=== PATIENT | female | born 1930 | race Asian ===

== ENCOUNTER 2017-01-25 00:13 | Inpatient (IN) | payer OTHER, MEDICAID ==
[~2017-01-25] VITALS: Ht 149.9 cm; Wt 31.4 kg
[2017-01-25] VITALS: BP 146/67
[2017-01-25] MEDS ORDERED: clonazePAM 0.5 MG TABLET PO PRN (00:30)
[2017-01-25] MEDS ORDERED: MAG HYDROX/AL HYDROX/SIMETH 30 ML UDC PO PRN (00:30)
[2017-01-25] MEDS ORDERED: TEMAZEPAM 7.5 MG CAPSULE PO PRN (00:30)
[2017-01-25] MEDS ORDERED: MAGNESIUM HYDROXIDE 30 ML UDC PO PRN (00:30)
[2017-01-25] MEDS ORDERED: ACETAMINOPHEN 325 MG TABLET PO PRN (00:30)
[2017-01-25] MEDS ORDERED: AMLO10TA2 PO (00:48)
[2017-01-25] MEDS ORDERED: DONE5TAB3 PO (00:48)
[2017-01-25] MEDS ORDERED: SIMV10TA6 PO (00:48)
[2017-01-25] MEDS ORDERED: ALEN70TA45 PO (00:48)
[2017-01-25] MEDS ORDERED: ALENDRONATE 70 MG TABLET PO SCH (06:30)
[2017-01-25 08:00] VITALS: BP 146/64
[2017-01-25] MEDS: AMLODIPINE BESYLATE 10 MG TABLET PO SCH (08:23)
[2017-01-25] MEDS: DONEPEZIL 5 MG TABLET PO SCH ×2 (11:17→19:42)
[2017-01-25 16:00] VITALS: BP 106/57
[2017-01-25] MEDS: SIMVASTATIN 10 MG TABLET PO SCH (19:43)
[2017-01-25] MEDS: MIRTAZAPINE 15 MG TABLET PO SCH (19:43)
[2017-01-25 20:13] VITALS: BP 106/52
[2017-01-25] MEDS ORDERED: QUETIAPINE FUMARATE 25 MG TABLET PO SCH (22:00)
[2017-01-26 06:49] LABS: BASOPHILS % (AUTO) 0.4 % (0.0-2.0); EOSINOPHILS # (AUTO) 0.4 /CMM (0.0-0.7); EOSINOPHILS % (AUTO) 5.8 % (0.0-6.0); HEMATOCRIT 36 % (33-45); HEMOGLOBIN 11.4 g/dL (11.5-14.8); LYMPHOCYTES # (AUTO) 1.5 /CMM (0.8-4.8); LYMPHOCYTES % (AUTO) 19.5 % (20.0-44.0); MEAN CORPUSCULAR HEMOGLOBIN 27 PG (26.0-33.0); MEAN CORPUSCULAR HGB CONC 32 g/dl (31.0-36.0); MEAN CORPUSCULAR VOLUME 84 fL (82-100); MONOCYTES # (AUTO) 0.7 /CMM (0.1-1.30); MONOCYTES % (AUTO) 9.7 % (2.0-12.0); NEUTROPHILS # (AUTO) 4.9 /CMM (1.8-8.9); NEUTROPHILS % (AUTO) 64.6 % (43.0-81.0); PLATELET COUNT (AUTO) 341 /CMM (150-450); RDW COEFFICIENT OF VARIATION 13.5 (11.5-15.0); RED BLOOD CELL COUNT(AUTO) 4.28 MIL/uL (4.0-5.2); WHITE BLOOD COUNT (AUTO) 7.6 K/uL (4.3-11.0)
[2017-01-26 07:15] LABS: ALBUMIN 3.6 g/dL (3.4-5.0); BILIRUBIN,TOTAL 0.2 mg/dL (0.2-1.0); CALCIUM, SERUM 8.8 mg/dL (8.5-10.1); CREATININE 1.4 mg/dL (0.6-1.3); MAGNESIUM 2.3 mg/dL (1.8-2.4); PHOSPHORUS 4.6 mg/dL (2.5-4.9); TOTAL PROTEIN, SERUM 7.3 g/dL (6.4-8.2)
[2017-01-26 08:00] VITALS: BP 130/63
[2017-01-26] MEDS: QUETIAPINE FUMARATE 25 MG TABLET PO SCH ×2 (09:43→18:04)
[2017-01-26] MEDS: DONEPEZIL 5 MG TABLET PO SCH ×2 (09:43→21:42)
[2017-01-26] MEDS: AMLODIPINE BESYLATE 10 MG TABLET PO SCH (09:44)
[2017-01-26 16:00] VITALS: BP 127/76
[2017-01-26 17:09] LABS: CHOLESTEROL 235 mg/dL (<200); HDL CHOLESTEROL 69 mg/dL (40-60); LDL 137 mg/dL (0-99); TRIGLYCERIDES 132 mg/dL (30-150)
[2017-01-26 20:00] VITALS: BP 92/55
[2017-01-26 21:00] VITALS: BP 92/55
[2017-01-26] MEDS: MIRTAZAPINE 15 MG TABLET PO SCH (21:42)
[2017-01-26] MEDS: SIMVASTATIN 10 MG TABLET PO SCH (22:25)
[2017-01-27 08:00] VITALS: BP 136/68
[2017-01-27] MEDS: QUETIAPINE FUMARATE 25 MG TABLET PO SCH ×2 (08:26→17:25)
[2017-01-27] MEDS: DONEPEZIL 5 MG TABLET PO SCH ×2 (08:27→21:15)
[2017-01-27] MEDS: AMLODIPINE BESYLATE 10 MG TABLET PO SCH (08:27)
[2017-01-27 16:00] VITALS: BP 125/75
[2017-01-27 20:11] VITALS: BP 119/57
[2017-01-27] MEDS: SIMVASTATIN 10 MG TABLET PO SCH (21:15)
[2017-01-27] MEDS: MIRTAZAPINE 15 MG TABLET PO SCH (21:16)
[2017-01-28] MEDS ORDERED: ALENDRONATE 70 MG TABLET PO SCH (06:30)
[2017-01-28] MEDS: QUETIAPINE FUMARATE 25 MG TABLET PO SCH ×2 (08:03→18:39)
[2017-01-28] MEDS: DONEPEZIL 5 MG TABLET PO SCH ×2 (08:03→21:03)
[2017-01-28] MEDS: AMLODIPINE BESYLATE 10 MG TABLET PO SCH (08:04)
[2017-01-28 10:58] VITALS: BP 112/55
[2017-01-28 16:28] VITALS: BP 137/63
[2017-01-28 20:00] VITALS: BP 122/59
[2017-01-28] MEDS: SIMVASTATIN 10 MG TABLET PO SCH (21:03)
[2017-01-28] MEDS: MIRTAZAPINE 15 MG TABLET PO SCH (21:03)
[2017-01-29 08:00] VITALS: BP 129/76
[2017-01-29] MEDS: DONEPEZIL 5 MG TABLET PO SCH ×2 (08:22→20:04)
[2017-01-29] MEDS: AMLODIPINE BESYLATE 10 MG TABLET PO SCH (08:23)
[2017-01-29] MEDS: QUETIAPINE FUMARATE 25 MG TABLET PO SCH ×2 (08:23→16:38)
[2017-01-29 15:53] VITALS: BP 118/54
[2017-01-29 20:00] VITALS: BP 109/45
[2017-01-29] MEDS: SIMVASTATIN 10 MG TABLET PO SCH (20:04)
[2017-01-29] MEDS: MIRTAZAPINE 15 MG TABLET PO SCH (20:04)
[2017-01-30 08:38] VITALS: BP 128/58
[2017-01-30 08:42] VITALS: BP 127/65
[2017-01-30] MEDS: AMLODIPINE BESYLATE 10 MG TABLET PO SCH (08:42)
[2017-01-30] MEDS: QUETIAPINE FUMARATE 25 MG TABLET PO SCH (08:42)
[2017-01-30] MEDS: DONEPEZIL 5 MG TABLET PO SCH (08:43)
== END 2017-01-30 13:15 | disposition home or self-care (01) | DRG 885 ==
LOC: GPS 00:13
PROVIDERS: ADMIT Psychiatry & Neurology Psychiatry; ATTEND Family Medicine
DX: F33.3 Major depressive disorder, recurrent, severe with psychotic symptoms (principal); E43 Unspecified severe protein-calorie malnutrition; N17.0 Acute kidney failure with tubular necrosis; F03.91 Unspecified dementia, unspecified severity, with behavioral disturbance; Z68.1 Body mass index [BMI] 19.9 or less, adult; Z73.6 Limitation of activities due to disability; I10 Essential (primary) hypertension; I25.10 Atherosclerotic heart disease of native coronary artery without angina pectoris; E86.0 Dehydration; M62.50 Muscle wasting and atrophy, not elsewhere classified, unspecified site; F29 Unspecified psychosis not due to a substance or known physiological condition
CPT/HCPCS: 36415; 80053-TC; 80061-TC; 83690-TC; 83735-TC; 84100-TC; 85025-TC; 87081-TC

== ENCOUNTER 2017-02-06 15:33 | Inpatient (IN) | payer OTHER, MEDICAID ==
[~2017-02-06] VITALS: Ht 152.4 cm; Wt 44.5 kg
[~2017-02-06 15:33] MED LIST: ALEN70TA45 PO; AMLO10TA2 PO; DONE5TAB3 PO; SIMV10TA6 PO
--- NOTE | 2017-02-06 15:55 | NUR ---
PT TO ER BED 08. HERE FOR PSYCH EVAL PRIOR TO PSYCH ADMISSION. MEDICALLY CLEARED AT A DIFFERENT HOSPITAL. VSS. NAD NOTED. AWAITING MD URRUTIA.
--- NOTE | 2017-02-06 16:04 | NUR ---
CALLED [facility] FOR PSYCH EVAL LEFT VOICEMAIL
--- NOTE | 2017-02-06 16:06 | NUR ---
DANA VILLAFUERTE AT BEDSIDE FOR EVAL.
[2017-02-06] MEDS ORDERED: RISP0.253 PO (16:52)
[2017-02-06] MEDS ORDERED: ACET-868 PO (16:52)
[2017-02-06] MEDS ORDERED: ATOR10TA PO (16:52)
[2017-02-06] MEDS ORDERED: MAG30ORA PO (16:52)
[2017-02-06] MEDS ORDERED: MIRT7.5T10 PO (16:52)
--- NOTE | 2017-02-06 17:02 | NUR ---
PER FAMILY. NO K+ RICH FOOD.
--- NOTE | 2017-02-06 17:09 | NUR ---
REPORT TO WILBER. PT AWAITING TRANSFER TO FLOOR.
[2017-02-06 17:49] VITALS: BP 134/80
[2017-02-06] MEDS ORDERED: ACETAMINOPHEN 325 MG TABLET PO PRN ×2 (18:00→19:00)
[2017-02-06] MEDS ORDERED: clonazePAM 0.5 MG TABLET PO PRN (18:00)
[2017-02-06] MEDS ORDERED: MAG HYDROX/AL HYDROX/SIMETH 30 ML UDC PO PRN ×2 (18:00→19:00)
[2017-02-06] MEDS ORDERED: MAGNESIUM HYDROXIDE 30 ML UDC PO PRN (18:00)
--- NOTE | 2017-02-06 18:10 | NUR ---
RN-CO: DR ATKINSON NOTIFIED, GAVE ADMITTING ORDERS, NOTED AND CARRIED OUT.
--- NOTE | 2017-02-06 18:12 | NUR ---
RN-CO: CALLED DR VALDIVIA TO RECONCILE HOME MEDICATION, LEFT VOICE MAIL AND AWAITING TO CALL BACK. WILL ENDORSE TO FOLLOW UP TO NEXT SHIFT.
--- NOTE | 2017-02-06 18:38 | NUR ---
RN-CO: DR VALDIVIA CALLED BACK AND NOTIFIED HIM ABOUT THE ADMISSION AND TO RECONCILE HOME MEDICATION.
--- NOTE | 2017-02-06 19:40 | NUR ---
ADMITTED THIS 86 Y/O FEMALE FROM [facility]. PT IS ON 5150 HOLD FOR GRAVELY DISABLED. PER DAUGHTER. PATIENT WAS SENT TO HOSPITAL FOR INCREASE AGITATION FOR THE LAST 2 DAYS. PT'S MOOD HAS BEEN UP AND DOWN. PT IS UNCOOPERATIVE WITH NURSING STAFF AND THREW A PHONE AT A NURSE. PT ALSO RIPPING OUT IV'S PER DAUGHTER. PT UNDER DR. ATKINSON FOR PSYCH AND DR. VALDIVIA FOR MEDICAL. ADMITTING DX. OF DEPRESSION AND MEDICAL DX. OF HTN, DEMENTIA, OSTEOPOROSIS. UPON FACE TO FACE EVALUATION, PATIENT IS ALERT AND ORIENTED X 2, CONFUSED, DISORIENTED, DISORGANIZED. V/S STABLE. NO SOB. RESPIRATION EVEN AND UNLABORED. NO ACUTE DISTRESS NOTED. PT REFUSED TO SIGN CONSENT FORMS. SKIN/BODY ASSESSMENT DONE. NOTED RIGHT HAND BRUISE, LEFT ARM, FOREARM BRUISE. PICTURE TAKEN, BELONGINGS CHECKED FOR CONTRABAND. NO CONTRABAND FOUND. BED IN LOW AND LOCKED POSITION, SIDERAILS UP X2, BED ALARM ON. WILL CONTINUE TO MONITOR FOR SAFETY AND BEHAVIOR [id number].
[2017-02-06 20:00] VITALS: BP 105/51
[2017-02-06] MEDS: DONEPEZIL 5 MG TABLET PO SCH (21:40)
[2017-02-06] MEDS: ATORVASTATIN 10 MG TABLET PO SCH (21:40)
[2017-02-06] MEDS: Z GUARD REMEDY 4 OZ OINT TP SCH (21:40)
[2017-02-06] MEDS ORDERED: TEMAZEPAM 7.5 MG CAPSULE PO PRN (22:00)
[2017-02-07 01:27] VITALS: BP 105/51
[2017-02-07 07:57] VITALS: BP 115/55
[2017-02-07 08:17] LABS: BILIRUBIN,TOTAL 0.2 mg/dL (0.2-1.0); CALCIUM, SERUM 8.4 mg/dL (8.5-10.1); CREATININE 1.5 mg/dL (0.6-1.3); POTASSIUM 3.9 mmol/L (3.5-5.1); TOTAL PROTEIN, SERUM 6.5 g/dL (6.4-8.2)
[2017-02-07] MEDS: AMLODIPINE BESYLATE 10 MG TABLET PO SCH (08:35)
[2017-02-07] MEDS: Z GUARD REMEDY 4 OZ OINT TP SCH ×2 (08:42→21:28)
[2017-02-07 16:06] VITALS: BP 104/50
[2017-02-07] MEDS: QUETIAPINE FUMARATE 25 MG TABLET PO SCH (16:59)
[2017-02-07 20:00] VITALS: BP 95/58
[2017-02-07] MEDS: DONEPEZIL 5 MG TABLET PO SCH (21:35)
[2017-02-07] MEDS: ATORVASTATIN 10 MG TABLET PO SCH (21:35)
[2017-02-07] MEDS: MIRTAZAPINE 15 MG TABLET PO SCH (21:35)
[2017-02-07] MEDS ORDERED: risperiDONE 0.25 MG TABLET PO SCH (22:00)
[2017-02-07] MEDS ORDERED: MIRTAZAPINE 15 MG TABLET PO SCH (22:00)
[2017-02-08 06:58] LABS: CALCIUM, SERUM 8.4 mg/dL (8.5-10.1); CREATININE 1.3 mg/dL (0.6-1.3); POTASSIUM 4.1 mmol/L (3.5-5.1)
[2017-02-08 08:00] VITALS: BP 154/70
[2017-02-08] MEDS: QUETIAPINE FUMARATE 25 MG TABLET PO SCH ×2 (08:27→16:59)
[2017-02-08] MEDS: AMLODIPINE BESYLATE 10 MG TABLET PO SCH (08:27)
[2017-02-08] MEDS: Z GUARD REMEDY 4 OZ OINT TP SCH ×2 (08:27→21:48)
[2017-02-08 16:25] VITALS: BP 115/52
[2017-02-08 19:51] VITALS: BP 139/57
[2017-02-08] MEDS: MIRTAZAPINE 15 MG TABLET PO SCH (21:47)
[2017-02-08] MEDS: DONEPEZIL 5 MG TABLET PO SCH (21:47)
[2017-02-08] MEDS: ATORVASTATIN 10 MG TABLET PO SCH (21:47)
--- NOTE | 2017-02-09 01:13 | NUR ---
Pt has been with depressed mood, quite passive, withdrawn, & evasive at times but pleasant/compliant on approach.
[2017-02-09 08:00] VITALS: BP 116/61
[2017-02-09] MEDS: QUETIAPINE FUMARATE 25 MG TABLET PO SCH ×2 (08:06→17:17)
[2017-02-09] MEDS: AMLODIPINE BESYLATE 10 MG TABLET PO SCH (08:06)
[2017-02-09] MEDS: Z GUARD REMEDY 4 OZ OINT TP SCH ×2 (08:08→21:44)
--- NOTE | 2017-02-09 10:30 | NUR ---
I have reviewed this patients psychosocial dated 01/26/17 and I can attest to the accuracy of the information therein. There have been no changes since her last assessment. Pt. still appears confused with auditory hallucinations and irritable with a flat affect. she is compliant with medications. Pt. denies suicidal/homicidal ideations.
--- NOTE | 2017-02-09 15:00 | NUR ---
UR Update: FREDY left clinical review voicemail to Cayden [phone] family caseworker from [facility]. FREDY will follow-up.
[2017-02-09 16:00] VITALS: BP 130/58
[2017-02-09 20:00] VITALS: BP 117/63
[2017-02-09 20:12] VITALS: BP 117/63
[2017-02-09] MEDS: DONEPEZIL 5 MG TABLET PO SCH (21:43)
[2017-02-09] MEDS: MIRTAZAPINE 15 MG TABLET PO SCH (21:44)
[2017-02-09] MEDS: ATORVASTATIN 10 MG TABLET PO SCH (21:44)
[2017-02-10 08:00] VITALS: BP 164/71
[2017-02-10] MEDS: QUETIAPINE FUMARATE 25 MG TABLET PO SCH ×2 (08:25→16:25)
[2017-02-10] MEDS: AMLODIPINE BESYLATE 10 MG TABLET PO SCH (08:25)
[2017-02-10] MEDS: Z GUARD REMEDY 4 OZ OINT TP SCH ×2 (08:26→20:19)
[2017-02-10 16:00] VITALS: BP 124/92
--- NOTE | 2017-02-10 16:17 | NUR ---
UR Update: FREDY left clinical review voicemail to Cayden [phone] case liner from [facility]. FREDY will follow-up.
--- NOTE | 2017-02-10 19:46 | NUR ---
GPS/RN NOTE: PATIENT RESTING IN BED, COMFORTABLE, DAUGHTER IN LAW STATED THAT SHE IS IMPROVING AND IS HAPPY . NO ACUTE DISTRESS NOTED. WILL CONTINUE TO MONITOR FOR SAFETY.
[2017-02-10 20:04] VITALS: BP 133/56
[2017-02-10] MEDS: ATORVASTATIN 10 MG TABLET PO SCH (21:03)
[2017-02-10] MEDS: DONEPEZIL 5 MG TABLET PO SCH (21:03)
[2017-02-10] MEDS: MIRTAZAPINE 15 MG TABLET PO SCH (21:04)
[2017-02-11] MEDS ORDERED: ALENDRONATE 70 MG TABLET PO SCH (07:30)
[2017-02-11 08:00] VITALS: BP 142/64
[2017-02-11] MEDS: AMLODIPINE BESYLATE 10 MG TABLET PO SCH (08:57)
[2017-02-11] MEDS: Z GUARD REMEDY 4 OZ OINT TP SCH ×2 (08:59→22:05)
[2017-02-11] MEDS: QUETIAPINE FUMARATE 25 MG TABLET PO SCH ×2 (08:59→16:50)
[2017-02-11 16:00] VITALS: BP 124/57
--- NOTE | 2017-02-11 16:13 | NUR ---
Patient's contacts are daughters Bandar Turcios and Cain Turcios .
--- NOTE | 2017-02-11 20:10 | NUR ---
RN NOTES: PT IN BED, A/O X1-2 ZAMBIAN SPEAKING, ON ROOM AIR, CALM AND COOPERATIVE, NO FACIAL GRIMACE NOTED, PT TALK SLOWLY, DISORGANIZED THOUGHT PROCESS, WITH GOOD APPETITE, PT MED COMPLIANT, PT HAS POOR MEMORY AND LIMITED JUDGMENT, SAFETY PRECAUTION FOR FALL INITIATED, WILL CONTINUE MONITORING [id number] FOR SAFETY AND BEHAVIOR
[2017-02-11 20:50] VITALS: BP 133/57
[2017-02-11] MEDS: DONEPEZIL 5 MG TABLET PO SCH (22:04)
[2017-02-11] MEDS: ATORVASTATIN 10 MG TABLET PO SCH (22:05)
[2017-02-11] MEDS: MIRTAZAPINE 15 MG TABLET PO SCH (22:05)
[2017-02-12 08:00] VITALS: BP 140/60
[2017-02-12] MEDS: AMLODIPINE BESYLATE 10 MG TABLET PO SCH (08:34)
[2017-02-12] MEDS: QUETIAPINE FUMARATE 25 MG TABLET PO SCH ×2 (08:34→16:49)
[2017-02-12] MEDS: Z GUARD REMEDY 4 OZ OINT TP SCH ×2 (08:43→21:58)
[2017-02-12 16:00] VITALS: BP 112/57
[2017-02-12 20:00] VITALS: BP 116/58
[2017-02-12] MEDS: MIRTAZAPINE 15 MG TABLET PO SCH (21:58)
[2017-02-12] MEDS: DONEPEZIL 5 MG TABLET PO SCH (21:58)
[2017-02-12] MEDS: ATORVASTATIN 10 MG TABLET PO SCH (21:59)
[2017-02-13 08:00] VITALS: BP 128/63
[2017-02-13 08:26] VITALS: BP 128/63
[2017-02-13] MEDS: QUETIAPINE FUMARATE 25 MG TABLET PO SCH (08:26)
[2017-02-13] MEDS: AMLODIPINE BESYLATE 10 MG TABLET PO SCH (08:26)
[2017-02-13] MEDS: Z GUARD REMEDY 4 OZ OINT TP SCH (08:26)
--- NOTE | 2017-02-13 13:15 | NUR ---
GPS RN: PATIENT DISCHARGED TO [facility]. PATIENT'S CONDITION IS STABLE FOR DISCHARGE, VS STABLE, PATIENT DENIES ANY SI/HI AT THE TIME OF DISCHARGE. ALL BELONGING RETURNED TO THE PATIENT. PROPERTY MANAGEMENT FORM SIGNED BY THE DAUGHTER. EDUCATIONAL EXIT CARE PRINTED, SIGNED AND PROVIDED TO THE PATIENT. CURRENT MEDICATION LIST PROVIDED (RECONCILED). PATIENT LEFT THE UNIT ACCOMPANIED BY THE DAUGHTER CHI AND STAFF MEMBER, PT IS LEAVING VIA PRIVATE CAR. REPORT GIVEN TO JENN DU AT THE FACILITY.
--- NOTE | 2017-02-13 14:51 | NUR ---
Discharge Note: Patient was discharged to [facility] [id number] [facility] [id number] . Patient's daughter Cain Turcios was notified and picked her up via private vehicle. Patient's daughter and patient were both agreeable with the discharge plan. Patient's mood was calm with a flat affect. Patient left with no apparent distress. Patient denied suicidal and homicidal ideations. Patient will follow-up with her psychiatrist Dr. Damion Saleem patient's daughter Cain Turcios agreed to follow-up with Dr. Damion Saleem within 30 days. Facilitated info to IDT team who are in agreement with discharge arrangement. The multidisciplinary exitcare form was done, printed, signed, and given to the patient.
== END 2017-02-13 13:15 | DRG 885 ==
LOC: ER 15:43 → MERGE 15:43 → GPS 17:14
PROVIDERS: ADMIT Psychiatry & Neurology Psychiatry; ATTEND Internal Medicine
DX: F32.3 Major depressive disorder, single episode, severe with psychotic features (principal); N17.9 Acute kidney failure, unspecified; N18.9 Chronic kidney disease, unspecified; N17.0 Acute kidney failure with tubular necrosis; E46 Unspecified protein-calorie malnutrition; F03.91 Unspecified dementia, unspecified severity, with behavioral disturbance; F39 Unspecified mood [affective] disorder; F29 Unspecified psychosis not due to a substance or known physiological condition; M81.0 Age-related osteoporosis without current pathological fracture; I25.10 Atherosclerotic heart disease of native coronary artery without angina pectoris; E78.5 Hyperlipidemia, unspecified; I12.9 Hypertensive chronic kidney disease with stage 1 through stage 4 chronic kidney disease, or unspecified chronic kidney disease
CPT/HCPCS: 36415; 80048-TC; 80053-TC; 80061-TC; 87081-TC; A4606; Z7610